=== PATIENT | male | born 1965 | race Caucasian/White ===

== ENCOUNTER 2020-06-24 15:28 | Emergency (ER) | payer SELFPAY ==
[~2020-06-24] VITALS: Ht 175.3 cm; Wt 97.7 kg
[2020-06-24 15:46] VITALS: TEMP 98.9
[2020-06-24 16:56] LABS: BASO % 0.8 % (0.0-2.0); EOS # 0.1 (0.0-0.7); EOS % 2.1 % (0-4.0); GRAN # 3.5 (1.4-6.5); HEMOGLOBIN 16.4 g/dl (13.5-18.0); LYMPH # 1.2 (1.2-3.4); MEAN CELL VOLUME 94 fl (80.0-100.0); MEAN CORPUSCULAR HEMOGLOBIN 31 pg (27.0-31.0); MEAN CORPUSCULAR HGB CONC 33 g/dl (33.0-37.0); MEAN PLATELET VOLUME 8.4 fl (7.4-10.4); MONO # 0.3 (0.1-0.6); MONO % 5.7 % (1.7-9.3); PLATELET COUNT 317 K/mm3 (130-400); RED BLOOD COUNT 5.34 M/mm3 (4.20-5.60)
[2020-06-24 17:10] LABS: ALBUMIN 4.3 gm/dL (3.5-5.0); CALCIUM 8.7 mg/dL (8.4-10.2); POTASSIUM 4.8 mmol/L (3.4-5.0); TOTAL PROTEIN 8.8 gm/dL (6.4-8.2)
[2020-06-24] MEDS ORDERED: MICRO-K 10 EXT10 MEQ PO (17:42)
[2020-06-24] MEDS ORDERED: LASIX 20MG TABL20 MG PO (17:42)
[2020-06-24 18:30] VITALS: BP 155/99; PULSE 90
== END 2020-06-24 18:30 | disposition home or self-care (01) ==
LOC: COL.ER 15:28
PROVIDERS: Nurse Practitioner
DX: R60.0 Localized edema (principal); F17.200 Nicotine dependence, unspecified, uncomplicated; Z87.442 Personal history of urinary calculi